=== PATIENT | female | born 2000 | race Caucasian/White ===

== ENCOUNTER 2024-04-27 16:19 | Emergency (ER) | payer OTHER ==
[~2024-04-27] VITALS: Ht 154.9 cm; Wt 84.4 kg
[2024-04-27 16:24] VITALS: BP 129/79; PULSE 78; RESP 16; TEMP 97.7; O2SAT 98
[2024-04-27 17:23] LABS: APPEARANCE,URINE CLEAR (CLEAR); BILIRUBIN,URINE NEGATIVE (NEGATIVE); BLOOD, URINE NEGATIVE (NEGATIVE); COLOR,URINE YELLOW (YELLOW); LEUKOCYTE ESTERASE ,URINE NEGATIVE (NEGATIVE); NITRITE, URINE NEGATIVE (NEGATIVE); PH,URINE 5.5 (5.0-9.0); PROTEIN,URINE NEGATIVE (NEGATIVE); UGLUCOSE NEGATIVE (NEGATIVE); UROBILINOGEN,URINE 0.2 EU/dL (0.2 - 1)
[2024-04-27 17:30] VITALS: BP 108/84; PULSE 69; RESP 16; TEMP 97.7; O2SAT 98
[2024-04-27] MEDS ORDERED: SULF-59 PO (18:49)
== END 2024-04-27 19:03 | disposition home or self-care (01) ==
LOC: MED 16:19
DX: R30.0 Dysuria (principal); R10.9 Unspecified abdominal pain; E11.9 Type 2 diabetes mellitus without complications; Z79.899 Other long term (current) drug therapy; Z88.6 Allergy status to analgesic agent
CPT/HCPCS: 81003; 81025; 87086; 99283